=== PATIENT | male | born 1955 | race Caucasian/White ===

== ENCOUNTER → 2019-07-15 | Outpatient (CLI) | payer BC | LOC: COL.RAD 10:09 | DX: Z01.812 Encounter for preprocedural laboratory examination (principal); R51 Headache; R42 Dizziness and giddiness; H53.9 Unspecified visual disturbance; Z92.89 Personal history of other medical treatment | CPT/HCPCS: A9585 ==

== ENCOUNTER → 2020-12-10 | Outpatient (CLI) | payer BC | LOC: EDSEX 10:26 → COL.RAD 10:26 | DX: Z01.812 Encounter for preprocedural laboratory examination (principal); I25.10 Atherosclerotic heart disease of native coronary artery without angina pectoris; K76.9 Liver disease, unspecified | CPT/HCPCS: Q9967 ==

== ENCOUNTER → 2020-12-24 | Outpatient (CLI) | payer BC | LOC: COL.RAD 12-21 09:45 → EDSEX 12-21 09:45 → COL.RAD 09:09 | DX: Z13.6 Encounter for screening for cardiovascular disorders (principal); I35.8 Other nonrheumatic aortic valve disorders; Z87.891 Personal history of nicotine dependence ==